=== PATIENT | female | born 1980 | race Caucasian/White ===

== ENCOUNTER 2025-01-03 21:07 | Emergency (ER) | payer MEDICAID ==
[~2025-01-03] VITALS: Ht 167.6 cm; Wt 100.0 kg
[2025-01-03 21:12] VITALS: O2SAT 100
[2025-01-03 23:41] VITALS: BP 127/65; PULSE 80; RESP 18; TEMP 36.9; O2SAT 100
== END 2025-01-03 23:41 | disposition home or self-care (01) ==
LOC: ER 21:07
DX: L02.212 Cutaneous abscess of back [any part, except buttock and flank] (principal); J44.9 Chronic obstructive pulmonary disease, unspecified; Z59.01 Sheltered homelessness
CPT/HCPCS: 99283